=== PATIENT | female | born 1980 | race Caucasian/White ===

== ENCOUNTER 2016-12-26 11:52 | Emergency (ER) | payer OTHER ==
--- NOTE | ~2016-12-26 | US67 ---
[facility] A Service of [facility] RADIOLOGY TEXT RESULTS PATIENT: ANGIE PERAZA LOCATION: [facility] : 82 UNIT #: [id number] AGE: [address]: Aguilar Lan MD SEX: F ORDER DR: [id number] [facility]. [place], [place] [address] [id number] MR#: [id number] Acc #: [id number] NAME: ANGIE PERAZA. : 1980 SEX: F STUDY DATE/TIME: 12/26/2016 13:00 UNIT: [facility] ROOM: STUDY DESCRIPTION: US Gallbladder Attending Physician: Aguilar Lan M.D. Ordering Physician: Aguilar Lan M.D. Primary Care Physician: Primary Care Physician No MEDICAL IMAGING REPORT This report is preliminary unless electronic signature is present EXAM Ultrasound of the gallbladder INDICATIONS Right upper quadrant pain and nausea for 2 days. TECHNIQUE Dillon-scale and color Doppler sonographic images were obtained through the right upper quadrant. FINDINGS The patient's liver does appear enlarged at 17.5 cm craniocaudal dimensions, however no focal hepatic lesions are seen. There is no intra or extrahepatic biliary dilatation. Main portal vein is patent with hepatopetal flow. Right kidney appears normal with no evidence of hydronephrosis. No solid or cystic renal masses are seen. The gallbladder also appears normal with no gallbladder wall thickening or pericholecystic fluid identified. No stones or sludge are seen within the gallbladder. IMPRESSION Patient does appear to have some hepatomegaly, otherwise unremarkable examination. Dictated by... Marcelle Melgoza M.D. THIS IS AN ELECTRONICALLY VERIFIED REPORT Marcelle Melgoza M.D. at 12/26/2016 5:16 PM AMY/jw TD: 12/26/2016 16:11 JOB #: [id number] [facility] A Service of [facility] RADIOLOGY TEXT RESULTS PATIENT: ANGIE PERAZA LOCATION: [facility] : 82 UNIT #: [id number] AGE: [address]: Aguilar Lan MD SEX: F ORDER DR: MEDICAL IMAGING REPORT Page 1 of 1 COPY
[2016-12-26 10:22] LABS: URINE SOURCE CLEAN CATCH
[2016-12-26 10:30] LABS: URINE APPEARANCE CLEAR; URINE BILIRUBIN NEG (NEG); URINE BLOOD NEG (NEG); URINE COLOR YELLOW; URINE GLUCOSE NEG (NEG); URINE KETONE NEG (NEG); URINE LEUKOCYTE ESTERASE NEG (NEG); URINE NITRATE NEG (NEG); URINE PH 6.5 (5-8); URINE PROTEIN NEG (NEG); URINE SPECIFIC GRAVITY 1.005 (1.003-1.035); URINE UROBILINOGEN 0.2 MG/DL (NEG)
[2016-12-26 10:35] LABS: CULTURE INDICATED? NO
[2016-12-26 11:37] LABS: BASOPHIL% 0.6 % (0-2.5); EOSINOPHIL% 0.2 % (0.0-7.0); HEMOGLOBIN 14.2 gm/dL (12.0-16.0); LYMPHOCYTE# 1.6 X10e3 (1.0-3.5); LYMPHOCYTE% 32.6 % (17.0-45.0); MEAN CELL VOLUME 95.4 FL (83-96); MEAN CORPUSCULAR HEMOGLOBIN 31.6 PG (28-34); MEAN CORPUSCULAR HGB CONC 33.1 g/dL (30-36); MEAN PLATELET VOLUME 8.2 FL (6.5-11.5); MONOCYTE# 0.2 X10e3 (0-1.0); MONOCYTE% 4.8 % (3.0-12.0); NEUTROPHIL% 61.8 % (40-75); PLATELET COUNT 204 X10e3 (140-420); RED CELL DISTRIBUTION WIDTH 13.8 % (11.0-15.5); WHITE BLOOD COUNT 4.9 X10e3 (4.0-10.5)
[2016-12-26 11:38] LABS: DIFF IND NO
[~2016-12-26 11:52] MED LIST: DEXFOL PO; IMMODIUM1 MG/5 ML; IMMODIUM1 MG/5 ML PO; KEFLEX PO; VICODIN 5/500 T1 TAB PO; VITAMIN D 4001 UDTAB PO
[2016-12-26 12:18] LABS: ALBUMIN SERUM 4.2 g/dL (3.5-5.0); ALKALINE PHOSPHATASE 31 U/L (32-92); ALT (SGPT) 16 U/L (10-40); AST (SGOT) 18 U/L (10-42); BILIRUBIN, DIRECT 0.1 mg/dL (0.0-0.2); BILIRUBIN,INDIRECT 0.3 mg/dL (0.0-0.9); BILIRUBIN,TOTAL 0.4 mg/dL (0.2-2.0); BLOOD UREA NITROGEN 6 mg/dL (9-23); BUN/CREATININE RATIO 8.57; CARBON DIOXIDE 26 mmol/L (22-31); CHLORIDE 107 mmol/L (100-111); CREATININE SERUM 0.7 mg/dL (0.6-1.4); GLOM FILT RATE Estimated ABOVE60 mL/min (>60); GLUCOSE FASTING 108 mg/dL (70-110); LIPASE 18 U/L (22-51); POTASSIUM 4.6 mmol/L (3.5-5.1); PROTEIN TOTAL SERUM 6.9 g/dL (6.0-8.3); SODIUM 138 mmol/L (135-145)
== END 2016-12-26 14:38 | disposition home or self-care (01) ==
LOC: CED 11:52
PROVIDERS: Emergency Medicine
DX: R10.13 Epigastric pain (principal); R10.11 Right upper quadrant pain; F17.200 Nicotine dependence, unspecified, uncomplicated; Z98.890 Other specified postprocedural states; Z91.040 Latex allergy status
CPT/HCPCS: 36415; 76705; 80048; 80076; 81003; 83690; 84703; 85025; 96361; 96374; 99284; J2270